=== PATIENT | male | born 1980 | race Caucasian/White ===

== ENCOUNTER 2019-12-10 22:09 | Emergency (ER) | payer BC ==
[2019-12-10] MEDS ORDERED: HALOPERIDOL LACTATE INJ 5 MG/1 ML VIAL IM ONE (22:24)
[2019-12-10] MEDS ORDERED: LORAZEPAM INJ 2 MG/1 ML VIAL IM ONE (22:24)
--- NOTE | 2019-12-10 22:29 | ER Document Report ---
ED Psych Disorder / Suicide - General Chief Complaint: Psych Problem Stated Complaint: PSYCH EVAL Time Seen by Provider: 12/10/19 22:24 Mode of Arrival: Ambulatory Information source: Patient, Law Enforcement - officer Robbin Notes: 39-year-old male arrives with Officer Robbin with chief complaint of homicidal and bizarre behavior. He has been on methamphetamine all day. He was running around the house with a machete threatening people in general. His mother reports he does this quite frequently when he has auditory hallucinations. Patient just is out of [facility] for manslaughter. Patient has mildly diaphoretic in room and surrounded by security and officer Ernie and Yeyo PEREZ. Patient denies any headache denies any chest pain denies any cough or coronavirus exposure. TRAVEL OUTSIDE OF THE [place] IN LAST 30 DAYS: No - HPI Patient complains to provider of: Aggression, Bizarre behavior, Hallucinating, Homicidal ideation Onset: This afternoon Quality of pain: No pain Severity: None Pain Level: Denies Suicide Risk Factors: Frightened friends/family, Hallucinations - Related Data Allergies/Adverse Reactions: No Known Allergies Allergy (Unverified 12/10/19 22:15) Past Medical History - General Information source: Patient, Law Enforcement - Social History Smoking Status: Current Every Day Smoker Cigarette use (# per day): Yes Chew tobacco use (# tins/day): No Smoking Education Provided: Yes Frequency of alcohol use: None Drug Abuse: Methamphetamine Lives with: Family Family History: Reviewed & Not Pertinent Patient has suicidal ideation: No Patient has homicidal ideation: Yes Review of Systems - Review of Systems Constitutional: No symptoms reported EENT: No symptoms reported Cardiovascular: No symptoms reported Respiratory: No symptoms reported Gastrointestinal: No symptoms reported Genitourinary: No symptoms reported Male Genitourinary: No symptoms reported Musculoskeletal: No symptoms reported Skin: No symptoms reported Hematologic/Lymphatic: No symptoms reported Neurological/Psychological: See HPI, Confusion, Hallucinations, Homicidal ideation Physical Exam - Vital signs Vitals: Temp Pulse Resp BP Pulse Ox 98.2 F 87 18 144/86 H 96 12/10/19 22:17 12/10/19 22:17 12/10/19 22:17 12/10/19 22:17 12/10/19 22:17 Interpretation: Hypertensive - HEENT Head: Normocephalic, Atraumatic Eyes: Normal Pupils: PERRL Sinus: Normal Mouth/Lips: Normal Pharynx: Normal Neck: Normal - Respiratory Respiratory status: No respiratory distress Chest status: Nontender Breath sounds: Normal Chest palpation: Normal - Cardiovascular Rhythm: Regular Heart sounds: Normal auscultation Murmur: No - Abdominal Inspection: Normal Distension: No distension Bowel sounds: Normal Tenderness: Nontender Organomegaly: No organomegaly - Rectal Prostate: Other - deferred - Genitourinary Scrotum: Other - deferred - Back Back: Normal - Extremities General upper extremity: Normal inspection General lower extremity: Normal inspection - Neurological Neuro grossly intact: Yes Cognition: Normal Orientation: AAOx4 Natasha Coma Scale Eye Opening: Spontaneous Natasha Coma Scale Verbal: Oriented Natasha Coma Scale Motor: Obeys Commands Natasha Coma Scale Total: 15 Speech: Normal Motor strength normal: LUE, RUE, LLE, RLE Sensory: Normal - Psychological Associated symptoms: Agitated, Anxious - Skin Skin Temperature: Warm Skin Moisture: Dry Course - Vital Signs Vital signs: Temp Pulse Resp BP Pulse Ox 98.2 F 58 L 20 125/88 H 96 12/11/19 06:00 12/11/19 05:54 12/11/19 05:54 12/11/19 05:54 12/11/19 05:54 - Laboratory Result Diagrams: 12/10/19 22:30 12/10/19 22:30 Laboratory results interpreted by me: 12/10/19 22:30 Creatinine 1.39 H Est GFR (MDRD) Non-Af 57 L Salicylates < 1.0 L Acetaminophen < 10 L Discharge - Discharge Clinical Impression: Auditory hallucinations, Homicidal ideation Condition: Good Disposition: PSYCH HOSP/UNIT
[2019-12-10 22:56] LABS: ABSOLUTE BASOPHILS # (AUTO) 0.1 10^3/uL (0.0-0.2); ABSOLUTE EOSINOPHILS # (AUTO) 0.2 10^3/uL (0.0-0.6); ABSOLUTE LYMPHOCYTES (AUTO) 2.4 10^3/uL (0.5-4.7); ABSOLUTE MONOCYTES (AUTO) 0.8 10^3/uL (0.1-1.4); ABSOLUTE NEUT (AUTO) 5.4 10^3/uL (1.7-8.2); BASOPHILS % (AUTO) 1.1 % (0-2); EOSINOPHILS % (AUTO) 2.2 % (0-6); HEMATOCRIT 45.7 % (37.9-51.0); HEMOGLOBIN 15.6 g/dL (13.5-17.0); LYMPHOCYTES % (AUTO) 26.9 % (13-45); MEAN CORPUSCULAR HEMOGLOBIN 29.9 pg (27.0-33.4); MEAN CORPUSCULAR HGB CONC 34.1 g/dL (32.0-36.0); MEAN CORPUSCULAR VOLUME 88 fl (80-97); MONOCYTES % (AUTO) 8.8 % (3-13); PLATELET COUNT 265 10^3/uL (150-450); RED BLOOD COUNT 5.22 10^6/uL (4.35-5.55); RED CELL DISTRIBUTION WIDTH 13.2 % (11.5-14.0); TOTAL CELLS COUNTED % (AUTO) 100 %; WHITE BLOOD COUNT 8.8 10^3/uL (4.0-10.5)
[2019-12-10 23:11] LABS: ALBUMIN 4.7 g/dL (3.5-5.0); ALKALINE PHOSPHATASE 72 U/L (38-126); ANION GAP 9 (5-19); ASPARTATE AMINO TRANSFERASE 50 U/L (17-59); BILIRUBIN,TOTAL 0.5 mg/dL (0.2-1.3); BLOOD UREA NITROGEN 13 mg/dL (7-20); CALCIUM 9.5 mg/dL (8.4-10.2); CARBON DIOXIDE 26 mmol/L (22-30); CHLORIDE 105 mmol/L (98-107); GLUCOSE 94 mg/dL (75-110); POTASSIUM 4.1 mmol/L (3.6-5.0); TOTAL PROTEIN 7.3 g/dL (6.3-8.2)
[2019-12-10 23:13] LABS: ACETAMINOPHEN < 10 ug/mL (10-30); ALCOHOL < 10 mg/dL (NONE DETECTED); SALICYLATE < 1.0 mg/dL (2.0-20.0)
[2019-12-11 06:00] VITALS: BP 125/88
--- NOTE | 2019-12-11 09:35 | EKG REPORT ---
SEVERITY:- NORMAL ECG - SINUS RHYTHM : Confirmed by: Danielle Oneil 11-Dec-2019 09:35:09
--- NOTE | 2019-12-11 16:59 | PSYCHOLOGICAL NOTE ---
Psych Note - Psych Note Date seen by psych provider: 12/11/19 Time seen by psych provider: 12:00 - 1st attempt Psych Note: Reason for Consult: IVC Patient arrived to [facility] ED via [facility] under 24 hour petition for evaluation petitioned by mobile crisis. Impression/Plan: patient is recommended for rescind of petition and is cleared from acute psychiatric services; paperwork is signed and placed in patient's chart. Dr. Preston was consulted on the care and management of this patient; attending physician is in agreement with recommendations and disposition.
== END 2019-12-11 18:51 | disposition home or self-care (01) ==
LOC: ER 22:09
DX: F15.151 Other stimulant abuse with stimulant-induced psychotic disorder with hallucinations (principal); R45.6 Violent behavior; R45.850 Homicidal ideations; R61 Generalized hyperhidrosis; F17.210 Nicotine dependence, cigarettes, uncomplicated; Z20.828 Contact with and (suspected) exposure to other viral communicable diseases
CPT/HCPCS: 93005; 99285; 96372; 36415; 80307 ×3; 85025; 87635; 80053; 93010; J1630; J2060; C9803